=== PATIENT | female | born 1985 | race Two or more races ===

== ENCOUNTER 2019-02-28 12:43 | Outpatient (CLI) | payer OTHER ==
[~2019-02-28 12:43] MED LIST: NORFLEX100 MG
== END 2019-02-28 14:05 | disposition home or self-care (01) ==
LOC: MAMO-SONO 12:43
DX: N64.4 Mastodynia (principal); N60.11 Diffuse cystic mastopathy of right breast; N60.12 Diffuse cystic mastopathy of left breast

== ENCOUNTER 2019-03-29 09:07 | Emergency (ER) | payer OTHER ==
[~2019-03-29] VITALS: Ht 152.4 cm; Wt 53.5 kg
== END 2019-03-29 09:31 | disposition home or self-care (01) ==
LOC: ER 09:07
DX: B96.0 Mycoplasma pneumoniae [M. pneumoniae] as the cause of diseases classified elsewhere (principal)

== ENCOUNTER 2020-07-12 10:00 | Outpatient (CLI) | payer OTHER | END 2020-07-12 15:49 | disposition home or self-care (01) | LOC: PPH VACUNA 10:00 | DX: Z23 Encounter for immunization (principal) ==

== ENCOUNTER 2020-10-15 11:32 | Emergency (ER) | payer OTHER ==
[~2020-10-15] VITALS: Ht 152.4 cm; Wt 52.2 kg
[2020-10-15] MEDS ORDERED: MECLIZINE HCL25 MG PO (14:40)
[2020-10-15] MEDS ORDERED: KETO10TA2 PO (14:43)
[2020-10-15] MEDS ORDERED: NORFLEX100MG PO (14:43)
== END 2020-10-15 14:46 | disposition home or self-care (01) ==
LOC: ER 11:32
DX: R42 Dizziness and giddiness (principal); Z20.828 Contact with and (suspected) exposure to other viral communicable diseases

== ENCOUNTER → 2020-10-31 | Outpatient (CLI) | payer OTHER ==
[~2020-10-31] MED LIST changes: +KETO10TA2 PO; +MECLIZINE HCL25 MG PO; +NORFLEX100MG PO
== END | disposition home or self-care (01) ==
LOC: OFIC 805 12:22
PROVIDERS: ATTEND Otolaryngology Otology & Neurotology
DX: R42 Dizziness and giddiness (principal)

== ENCOUNTER 2020-11-14 12:27 | Outpatient (CLI) | payer OTHER | END 2020-11-14 15:10 | disposition home or self-care (01) | LOC: OFIC 805 12:27 | PROVIDERS: ATTEND Otolaryngology Otology & Neurotology | DX: H81.12 Benign paroxysmal vertigo, left ear (principal); J30.89 Other allergic rhinitis; J34.89 Other specified disorders of nose and nasal sinuses ==

== ENCOUNTER → 2021-05-16 | Outpatient (CLI) | payer OTHER | END | disposition home or self-care (01) | LOC: LAB 14:42 | PROVIDERS: ATTEND Emergency Medicine Pediatric Emergency Medicine | DX: Z20.818 Contact with and (suspected) exposure to other bacterial communicable diseases (principal) ==

== ENCOUNTER → 2021-07-16 | Outpatient (CLI) | payer OTHER | END | disposition home or self-care (01) | LOC: PPH VACUNA 08:00 | PROVIDERS: ATTEND Emergency Medicine Pediatric Emergency Medicine | DX: Z23 Encounter for immunization (principal) ==

== ENCOUNTER 2021-07-25 17:00 | Outpatient (CLI) | payer OTHER | END 2021-07-25 17:05 | disposition home or self-care (01) | LOC: PPH VACUNA 17:00 | PROVIDERS: ATTEND Emergency Medicine Pediatric Emergency Medicine | DX: Z23 Encounter for immunization (principal) ==

== ENCOUNTER → 2022-08-06 | Emergency (ER) | payer OTHER ==
[~2022-08-06] VITALS: Ht 152.4 cm; Wt 56.7 kg
== END | disposition home or self-care (01) ==
LOC: ER 08:11
DX: R42 Dizziness and giddiness (principal)

== ENCOUNTER 2023-08-22 18:29 | Emergency (ER) | payer OTHER ==
[~2023-08-22] VITALS: Ht 152.4 cm; Wt 61.2 kg
[2023-08-22 21:13] LABS: HEMATOCRIT 39.9 % (36.0-45.00); HEMOGLOBIN 13.2 g/dL (12.0-15.00); MEAN CELL VOLUME 89.6 fL (80.00-100.00); MEAN CORPUSCULAR HEMOGLOBIN 29.6 pg (27.00-32.0); PLATELET COUNT 339 K/uL (150-450); RED BLOOD COUNT 4.46 M/uL (4.00-6.00); RED CELL DISTRIBUTION WIDTH 13.7 % (11.5-14.5)
[2023-08-22 21:27] LABS: CALCIUM 9.3 mg/dL (8.5-10.1); CREATININE SERUM 0.75 mg/dL (0.55-1.02); GFR 85.58; POTASSIUM 4.15 mEq/L (3.5-5.1)
== END 2023-08-23 01:23 | disposition home or self-care (01) ==
LOC: ER 18:29
PROVIDERS: Emergency Medicine
DX: G43.909 Migraine, unspecified, not intractable, without status migrainosus (principal)

== ENCOUNTER 2024-06-20 18:42 | Emergency (ER) | payer OTHER ==
[~2024-06-20] VITALS: Ht 152.4 cm; Wt 58.1 kg
[2024-06-20] MEDS ORDERED: FAMOTIDINE/PF 20 MG in 0.9 % SODIUM CHLORIDE 8 ML IV PUSH STA (18:57)
[2024-06-20] MEDS ORDERED: DIPHENOXYLATE HCL/ATROPINE 1 UDTAB TABLET PO ONE (19:00)
[2024-06-20] MEDS ORDERED: METRONIDAZOLE/SODIUM CHLORIDE 500 MG/100 ML PIGGYBACK IV ONE ×2 (19:00→19:02)
[2024-06-20] MEDS ORDERED: CIPROFLOXACIN IN 5 % DEXTROSE 400 MG/200 ML PIGGYBAG IV ONE ×2 (19:00→19:02)
[2024-06-20] MEDS ORDERED: 0.9 % SODIUM CHLORIDE 1,000 ML IV SCH (19:00)
[2024-06-20] MEDS ORDERED: FAMOTIDINE/PF 20 MG/2 ML VIAL ONE (19:02)
[2024-06-20 19:30] LABS: HEMATOCRIT 40.1 % (36.0-45.00); HEMOGLOBIN 13.9 g/dL (12.0-15.00); MEAN CELL VOLUME 88.6 fL (80.00-100.00); MEAN CORPUSCULAR HEMOGLOBIN 30.7 pg (27.00-32.0); MEAN CORPUSCULAR HGB CONC 34.6 g/dl (32.0-36.0); PLATELET COUNT 417 K/uL (150-450); RED BLOOD COUNT 4.53 M/uL (4.00-6.00); RED CELL DISTRIBUTION WIDTH 13.5 % (11.5-14.5)
[2024-06-20 20:15] LABS: BILIRUBIN TOTAL 0.23 mg/dL (0.3-1.2); CALCIUM 9.7 mg/dL (8.5-10.1); CREATININE SERUM 0.95 mg/dL (0.55-1.02); GFR 64.82; GLOBULINA 4.1 G/DL (2.4-3.5); POTASSIUM 4.14 mEq/L (3.5-5.1); TOTAL PROTEIN 8.1 gm/dL (6.4-8.2)
[2024-06-20 20:55] LABS: PH,URINE 5.5 (5.0-8.0); URINE APPEARANCE Clear; URINE BILIRRUBIN Negative (NEGATIVE); URINE BLOOD Negative; URINE COLOR Yellow; URINE GLUCOSE Negative (NEGATIVE); URINE KETONE Negative (NEGATIVE); URINE LEUKOCYTE Negative; URINE NITRATE Negative; URINE PROTEIN Negative (NEGATIVE); URINE UROBILINOGEN 0.2 E.U./dl
[2024-06-20 20:59] LABS: URINE BACTERIA 377.8 uL (0.0-1933); URINE RBC 18.9 uL (0.0-20.8)
[2024-06-20 21:18] LABS: URINE WBC 0.6 uL (0.0-23.2)
[2024-06-20] MEDS ORDERED: INTESTINEX680 M1 PO (22:15)
[2024-06-20] MEDS ORDERED: METRONIDAZOLE500 MG PO (22:15)
[2024-06-20] MEDS ORDERED: CIPRO500 MG PO (22:15)
[2024-06-20] MEDS ORDERED: PEPCID AC20 MG PO (22:15)
== END 2024-06-20 22:18 | disposition home or self-care (01) ==
LOC: ER 18:43
PROVIDERS: General Practice
DX: K52.89 Other specified noninfective gastroenteritis and colitis (principal); I88.0 Nonspecific mesenteric lymphadenitis; K44.9 Diaphragmatic hernia without obstruction or gangrene